=== PATIENT | male | born 1960 | race Caucasian/White ===

== ENCOUNTER → 2020-08-13 13:39 | Outpatient (BNVA) | payer MEDICARE, SELFPAY | PROVIDERS: Family Provider Family Medicine; PCP Family Medicine; Visit Provider Family Medicine | DX: I10 Essential (primary) hypertension (principal); Z00.00 Encounter for general adult medical examination without abnormal findings | CPT/HCPCS: 80053; 85025 ==

== ENCOUNTER → 2021-08-12 09:56 | Outpatient (BNVA) | payer MEDICARE, SELFPAY | PROVIDERS: Family Provider Family Medicine; PCP Family Medicine; Visit Provider Family Medicine | DX: Z00.00 Encounter for general adult medical examination without abnormal findings (principal); I10 Essential (primary) hypertension | CPT/HCPCS: 80053; 85025 ==

== ENCOUNTER → 2022-08-28 11:00 | Outpatient (BNVA) | payer MEDICARE, SELFPAY | PROVIDERS: Family Provider Family Medicine; PCP Family Medicine; Visit Provider Family Medicine | DX: I10 Essential (primary) hypertension (principal) | CPT/HCPCS: 80053; 85025 ==

== ENCOUNTER → 2023-02-23 11:11 | Outpatient (BNVA) | payer MEDICARE, SELFPAY | PROVIDERS: Family Provider Family Medicine; PCP Family Medicine; Visit Provider Family Medicine | DX: I10 Essential (primary) hypertension (principal) | CPT/HCPCS: 80053 ==

== ENCOUNTER → 2023-04-03 08:15 | Outpatient (BNVA) | payer MEDICARE, SELFPAY | PROVIDERS: Family Provider Family Medicine; PCP Family Medicine; Visit Provider Surgery | DX: R63.4 Abnormal weight loss (principal); R19.4 Change in bowel habit; K42.9 Umbilical hernia without obstruction or gangrene; Z12.11 Encounter for screening for malignant neoplasm of colon | CPT/HCPCS: 99203 ==

== ENCOUNTER 2023-04-23 05:53 | Day surgery (SDC) | payer MEDICARE, SELFPAY ==
[2023-04-21 10:36] VITALS: BMI 33.0
[2023-04-23 06:15] VITALS: BP 151/84; PULSE 80; RESP 18; TEMP 36.1; O2SAT 97
--- NOTE | 2023-04-23 06:20 | P.HPUD_ITS ---
Surgery/Procedure H&P Update DATE OF PROCEDURE: April 23, 2023 DATE H&P PERFORMED: 04/03/23 H&P UPDATE INFORMATION: I have reviewed H&P completed within last 30 days, I have examined patient prior to procedure, No changes to prior documentation and H&P is in [facility] EMR on date indicated PREOP DIAGNOSIS: Encounter for screening colonoscopy PLANNED PROCEDURE: Operation Date: 04/23/23 07:00 Proposed Procedures p Colonoscopy 99274,R63.4,R19.4(Not Applicable) - Sea Stacy MD
--- NOTE | 2023-04-23 06:33 | P.ANESASSM_ITS ---
Pre-Anesthetic Assessment Height/Weight: Height 1.75 m Weight 101.605 kg Temp Pulse Resp BP Pulse Ox O2 Del Method 97.0 F L 80 18 151/84 97 Room Air 04/23/23 06:15 04/23/23 06:15 04/23/23 06:15 04/23/23 06:15 04/23/23 06:15 04/23/23 06:15 Preop Diagnosis: Encounter for screening colonoscopy Operation Date: 04/23/23 07:00 Proposed Procedures p Colonoscopy [id number],R63.4,R19.4(Not Applicable) - Sea Stacy MD Familial anesthetic complications: None Was Beta Taiwo taken within 24 hours: N/A Was Clonidine taken within 24 hours: N/A Last intake: Intake Last Liquid Date 04/22/23 Last Liquid Time 22:00 Last Solid Date 04/21/23 Last Solid Time 19:00 Social No alcohol and No tobacco Exam alert, oriented x 3, clear to auscultation bilaterally and regular rate & rhythm Airway Submandibular: within normal limits Cervical ROM: within normal limits Mallampati: Class II Dentition: full History/ROS No significant history except as noted and No significant complaints Pulmonary None reported CV/HEM Hypertension None reported Hepatic None reported GI Umbilical hernia Metabolic Morbid Obesity Musc/skel None reported Neuropsych None reported Anesthetic Plan ASA status: 2 Risk of > 500 ml blood loss (7ml/kg in children): No Medications/Allergies Home Medications Medication Instructions Recorded Confirmed Last Taken Type lisinopril 20 1 tab PO DAILY 04/23/23 04/23/23 04/22/23 History mg-hydrochlorothiazide 25 mg tablet Allergies Allergy/AdvReac Type Severity Reaction Status Date / Time No Known Allergies Allergy Verified 04/03/23 08:18 [facility] Anesthesia Medical History (Updated 04/03/23 @ 09:00 by Sea Stacy MD) Hypertension Family History (Updated 04/03/23 @ 08:26 by EVY Monterroso) Mother Cancer breast cancer Father Cancer lung cancer Social History (Updated 04/03/23 @ 08:25 by EVY Monterroso) Smoking and tobacco status: former smoker Alcohol intake: never Data Anesthesia Cardiac Studies: No Data to Display
[2023-04-23] MEDS: sodium chloride 0.9% 1,000 ML 30 ML IV (06:46)
[2023-04-23 07:24] VITALS: BP 86/59; PULSE 65; RESP 12; TEMP 36.1; O2SAT 97
[2023-04-23 07:37] VITALS: BP 108/67; PULSE 69; RESP 17; O2SAT 97
--- NOTE | 2023-04-23 16:09 | ANE.PACU2 ---
Inpatient post-anesthesia follow up: Airway intact: Yes Vital signs: Temperature 97.0 F Pulse Rate 69 Respiratory Rate 17 Blood Pressure 108/67 Pulse Oximetry 97 Oxygen Delivery Me thod Room Air Oxygen Flow Rate Fraction of Inspir ed Oxygen Hydration adequate: Yes Nausea and vomiting: No Pain level: 2 Mental status: Baseline
== END 2023-04-23 08:22 | disposition home or self-care (01) ==
PROVIDERS: PCP Family Medicine; Visit Provider Surgery
PROC: 0DJD8ZZ Inspection of Lower Intestinal Tract, Via Natural or Artificial Opening Endoscopic (ICD-10-PCS; CPT 45378; principal; 2023-04-23 07:00)
DX: R63.4 Abnormal weight loss; R19.4 Change in bowel habit
CPT/HCPCS: 45378; G0121; J2704; J7030

== ENCOUNTER → 2023-04-30 14:30 | Outpatient (BNVA) | payer MEDICARE, SELFPAY | PROVIDERS: PCP Family Medicine; Visit Provider Surgery | DX: Z09 Encounter for follow-up examination after completed treatment for conditions other than malignant neoplasm (principal) | CPT/HCPCS: 99213 ==

== ENCOUNTER → 2023-11-30 11:00 | Outpatient (BNVA) | payer MEDICARE, SELFPAY | PROVIDERS: PCP Family Medicine; Visit Provider Family Medicine | DX: I10 Essential (primary) hypertension (principal) | CPT/HCPCS: 80053; 85025 ==

== ENCOUNTER → 2024-12-01 08:55 | Outpatient (BNVA) | payer MEDICARE, SELFPAY | PROVIDERS: PCP Family Medicine; Visit Provider Family Medicine | DX: Z00.00 Encounter for general adult medical examination without abnormal findings (principal); I10 Essential (primary) hypertension | CPT/HCPCS: 80053; 85025 ==